=== PATIENT | female | born 2000 | race Caucasian/White ===

== ENCOUNTER 2020-02-12 06:25 | Observation (INO) | payer OTHER ==
[~2020-02-12] VITALS: Ht 162.6 cm; Wt 59.0 kg
[2020-02-12] MEDS ORDERED: ESCI10 PO (07:04)
[2020-02-12 07:20] LABS: BASOPHILS ABSOLUTE AUTO 0.09 K/mm3 (0.00-0.23); BASOPHILS PERCENT AUTO 1 % (0-2); EOSINOPHILS ABSOLUTE AUTO 0.64 K/mm3 (0.00-0.68); EOSINOPHILS PERCENT AUTO 5 % (0-6); Hematocrit 40.2 % (33.0-51.0); Hemoglobin 13.5 g/dL (11.5-16.0); IMMATURE GRAN ABSOLUTE AUTO 0.06 K/mm3 (0.00-0.10); IMMATURE GRAN PERCENT AUTO 1 % (0-1); LYMPHOCYTES ABSOLUTE AUTO 2.37 K/mm3 (0.84-5.20); LYMPHOCYTES PERCENT AUTO 19 % (21-46); MONOCYTES ABSOLUTE AUTO 0.69 K/mm3 (0.16-1.47); MONOCYTES PERCENT AUTO 5 % (4-13); Mean Corpuscular HGB 28.5 pg (26.0-34.0); Mean Corpuscular HGB Conc 33.6 g/dL (31.5-36.5); Mean Corpuscular Volume 85 fL (80-100); Mean Platelet Volume 9.2 fL (9.1-12.4); NEUTROPHILS ABSOLUTE AUTO 8.93 K/mm3 (1.96-9.15); NEUTROPHILS PERCENT AUTO 70 % (41-73); Platelet Count 300 K/mm3 (150-400); RDW Coefficient Variation 12.1 % (11.7-14.2); RDW Standard Deviation 37.3 fL (35.1-46.3); Red Blood Cell Count 4.74 M/mm3 (3.80-5.20); White Blood Cell Count 12.78 K/mm3 (4.00-11.30)
[2020-02-12 07:46] LABS: Alanine Aminotransfer (ALT/SGP 20 U/L (12-78); Albumin/Globulin Ratio 0.9 (0.8-1.8); Alk Phos 56 U/L (50-136); Anion Gap 6 mmol/L (6-16); Aspartate Aminotrans (AST/SGOT 14 U/L (12-37); Bilirubin, Total 0.3 mg/dL (0.1-1.0); Blood Urea Nitrogen 12 mg/dL (8-24); Bun/Creatinine Ratio 15.4 (12.0-20.0); CO2, Blood 26 mmol/L (21-32); Calcium, Blood 9.3 mg/dL (8.5-10.1); Chloride, Blood 105 mmol/L (98-108); Creatinine, Blood 0.78 mg/dL (0.40-1.00); Globulin, Blood 4.5 g/dL (2.2-4.0); Glomerular Filtration Rate >60 (60-); Glucose, Blood 108 mg/dL (70-99); Potassium, Blood 3.4 mmol/L (3.5-5.5); Sodium, Blood 137 mmol/L (136-145); Total Protein, Blood 8.5 g/dL (6.4-8.2)
[2020-02-12 09:12] LABS: Source, Urine Clean Catch
[2020-02-12 09:17] LABS: Bilirubin, Urine Neg (Neg); Blood, Urine Neg (Neg); Glucose Qualitative, Urine Neg (Neg); Ketones, Urine 2+ (Neg); Leukocyte Esterase, Urine Neg (Neg); Nitrite, Urine Neg (Neg); Protein, Urine Neg (Neg); Urobilinogen, Urine NORM (Normal)
[2020-02-12 09:24] LABS: Appearance, Urine Cloudy (Clear); Color, Urine Yellow (P-Yellow)
[2020-02-12 09:28] LABS: Bacteria Few /hpf; Red Blood Cells, Urine 0-2 /hpf (0-2); Squamous Epithelial Cells Rare /hpf (Few); White Blood Cells, Urine 0-2 /hpf (0-5)
[2020-02-12 09:29] LABS: Amorphous Heavy (0-Heavy)
--- NOTE | 2020-02-12 09:57 | NUR ---
ARRIVED FROM ER VIA LONNIE, AWAKE, A&O X3, DENIES ANY PAIN OR NAUSEA AT THIS TIME, ORIENTED TO ROOM AND CALL SYSTEM, MONITOR FOR ANY CHANGES, ASSIST PRN, MEDICATE FOR PAIN PRN.
--- NOTE | 2020-02-13 03:39 | NUR ---
SHIFT SUMMARY LYING IN SUPINE POSITION, HAS RESTED WELL. HAS BEEN NPO SINCE MIDNIGHT FOR A LAP PAWAN TODAY. LEFT AC 20G PIV IS PATENT, FLUSHING WITH EASE WHILE INFUSING LR AT 100ML/HR. DENIES PAIN, DISCOMFORT, OR FURTHER NEEDS AT THIS TIME. SAFETY MEAURES IN PLACE. WILL CONTINUE TO MONITOR AND GIVE HAND OFF TO ONCOMING SHIFT USING SBAR.
--- NOTE | 2020-02-13 16:24 | NUR ---
PT OUT OF ROOM FOR PROCEDURE ON [place] WITH OTHER STAFF, MOM PRESENT. ABX SENT WITH OTHER STAFF.
--- NOTE | 2020-02-13 16:37 | NUR ---
SHIFT SUMMARY PT BEEN NPO. PT BEEN ASSISTED WITH ADL'S PRN. PT UP IND IN ROOM. PT'S MOM BEEN IN ROOM TODAY WITH PT. PT OUT OF ROOM AT THIS TIME FOR PROCEDURE.
--- NOTE | 2020-02-13 17:57 | NUR ---
02/13/20 1757 Dee Reddy PT ON SCHEDULED ANTIBIOTICS
--- NOTE | 2020-02-13 20:11 | NUR ---
PT BACK FROM SURGERY TO ROOM 226 APPROX 1950. A/O X4. MED FOR 12/15 PAIN WITH FENTANYL IV. DENIES FURTHER NEEDS AT THIS TIME. CALL LIGHT IN REACH.
--- NOTE | 2020-02-13 21:32 | NUR ---
PT HAS BEEN UP TO BATHROOM RECENTLY AND VOIDED. PT IS TOLERATING PO INTAKE WITHOUT NASUEA. PAIN MANAGED PER ORDERS - SEE EMAR.
--- NOTE | 2020-02-14 03:48 | NUR ---
SHIFT SUMMARY PT A/O X4. TOLERATING SMALL PO INTAKE W/O NAUSEA. HAS ABMULATED MULT TIMES TO BATHROOM, VOIDING. NO BM THIS SHIFT. PAIN MANAGED WITH NORCO X2. STERI STRIPS TO ABD CDI. NO ACUTE CHANGES. RESTING AT THIS TIME.
--- NOTE | 2020-02-14 09:00 | NUR ---
DISCUSSED PT'S STATUS WITH DR LEBLANC.
[2020-02-14] MEDS ORDERED: HYDR1TAB94 PO (10:27)
--- NOTE | 2020-02-14 10:54 | NUR ---
PT RECENTLY DISCHARGED BY POWERHOUSE ATTENDANT. PT EATING AND DRINKING, VOIDING, PASSING GAS. PAIN TOLERABLE ON PO PAIN MEDICATION. PT IND WITH STEADY GAIT, FAMILY HERE TO GET PT.
== END 2020-02-14 10:48 | disposition home or self-care (01) ==
LOC: ER 06:25 → SURS 06:26
PROVIDERS: Emergency Medicine; ADMIT Surgery
PROC: 0FT44ZZ Resection of Gallbladder, Percutaneous Endoscopic Approach (ICD-10-PCS; principal; 2020-02-13 10:15)
DX: K80.12 Calculus of gallbladder with acute and chronic cholecystitis without obstruction (principal); Z20.828 Contact with and (suspected) exposure to other viral communicable diseases
CPT/HCPCS: 36415; 76705; 80053; 81001; 81025; 83690; 85025; 88304; 96361; 96365; 96366; 96375; 96376; 99285-25; A9270-GY; G0378; J0694; J0696; J1100; J1885; J2250; J2370; J2405; J2704; J2710; J3010; J7030; J7120; U0002